=== PATIENT | male | born 1955 | race Caucasian/White ===

== ENCOUNTER 2025-05-16 05:58 | Day surgery (SDC) | payer MEDICARE, BC ==
[2025-05-14 14:18] VITALS: BMI 32.8
[2025-05-16] MEDS ORDERED: Bupivacaine/Epinephrine 0.25% 30 ML VIAL ONE (06:55)
[2025-05-16] MEDS ORDERED: CEFAZOLIN 2 GM VIAL ONE (06:56)
[2025-05-16] MEDS ORDERED: PROPOFOL 20 ML ONE (07:12)
[2025-05-16] MEDS ORDERED: Lidocaine 1% PF 5 ML VIAL ONE (07:18)
[2025-05-16] MEDS ORDERED: Rocuronium Bromide 10 MG/ML (10ML VIAL) ONE (07:18)
[2025-05-16] MEDS ORDERED: Glycopyrrolate 0.2 MG/ML 5 ML SYRINGE ONE (08:08)
[2025-05-16] MEDS ORDERED: HYDROcodone/Acetaminophen 10/325 mg Tablet ONE (09:21)
== END 2025-05-16 09:04 | disposition home or self-care (01) ==
LOC: CSHSDC 05:58
PROVIDERS: ATTEND Surgery
PROC: 0WUF4JZ Supplement Abdominal Wall with Synthetic Substitute, Percutaneous Endoscopic Approach (ICD-10-PCS; principal; 2025-05-16)
DX: K43.9 Ventral hernia without obstruction or gangrene (principal)
CPT/HCPCS: 49593; C1781; J1100; J2704; J3010; S2900